=== PATIENT | female | born 1990 | race Caucasian/White ===

== ENCOUNTER 2019-02-02 15:09 | Inpatient (IN) ==
[2019-02-02] MEDS ORDERED: FAMOTIDINE 20 MG/2 ML VIAL IV ONE (15:46)
[2019-02-02] MEDS ORDERED: CITRIC ACID/SODIUM CITRATE 30 ML UDCUP PO ONE (15:46)
[2019-02-02] MEDS ORDERED: ceFAZolin 2,000 MG in PREMIX 1 EACH IV ONE (15:46)
[2019-02-02] MEDS ORDERED: OXYTOCIN/LR 20 UNIT/1,000 ML BAG IV ONE (15:49)
[2019-02-02 16:08] LABS: Basophils % 0.3 % (0.0-0.8); Eosinophils # 0.1 10*3/uL (0.0-0.87); Eosinophils % 0.6 % (0.00-10.9); Hematocrit 37.1 VOL% (35.7-47.0); Hemoglobin 12.9 GM/DL (12.0-16.0); Immature Granulocytes % 1.6 %; Lymphocytes # 1.8 10*3/uL (1.4-4.0); Lymphocytes % 14.7 % (21.3-54.2); Mean Corpuscular HGB Conc 34.8 GM/DL (32-36); Mean Corpuscular Volume 91.6 FL (87-102); Mean Platelet Volume 11.6 FL (9.6-12.0); Monocytes % 7.6 % (1.7-12.7); Neutrophils % 75.2 % (38.7-73.9); Platelet Count 218 T/CUMM (130-400); Red Blood Count 4.05 MC/CUMM (3.8-5.5); Red Cell Distribution Width 12.6 % (9.3-17.3); White Blood Count 12.3 T/CUMM (4-12)
[2019-02-02 16:18] LABS: PT Patient Result 10.5 SECS (9.6-12.2)
[2019-02-02 16:26] LABS: Bilirubin,Total 1.2 MG/DL (0.2-1.0); Uric Acid 5.7 MG/DL (2.6-6.0)
[2019-02-02 16:27] LABS: Albumin 3.1 G/DL (3.4-5.0); Bilirubin,Total 0.5 MG/DL (0.2-1.0); Calcium 9.2 MG/DL (8.5-10.1); Total Protein 7.3 G/DL (6.4-8.3)
[2019-02-02] MEDS: LACTATED RINGERS 1,000 ML IV SCH (17:35)
[2019-02-02] MEDS ORDERED: ZALEPLON 5 MG CAPSULE PO ONE (22:00)
[2019-02-03] MEDS ORDERED: FAMOTIDINE 20 MG/2 ML VIAL IV ONE (06:57)
[2019-02-03] MEDS ORDERED: CITRIC ACID/SODIUM CITRATE 30 ML UDCUP PO ONE (06:57)
[2019-02-03] MEDS ORDERED: ceFAZolin 2,000 MG in PREMIX 1 EACH IV ONE (06:58)
[2019-02-03] MEDS ORDERED: BUPIVACAINE 0.25% 50 ML VIAL ONE (06:59)
[2019-02-03] MEDS ORDERED: PHENYLEPHRINE 1 MG/10 ML SYRINGE IV ONE (06:59)
[2019-02-03] MEDS ORDERED: EPINEPHrine 1 MG/ML VIAL ONE (07:00)
[2019-02-03] MEDS ORDERED: BUPIVACAINE SPINAL 0.75% 2 ML AMP SPINAL ONE (07:00)
[2019-02-03] MEDS ORDERED: DEXAMETHASONE 4 MG/1 ML VIAL ONE (07:00)
[2019-02-03] MEDS ORDERED: MORPHINE 10 MG/10 ML VIAL ONE (07:00)
[2019-02-03] MEDS ORDERED: fentaNYL 100 MCG/2 ML VIAL ONE (07:00)
[2019-02-03] MEDS ORDERED: ONDANSETRON 4 MG/2 ML VIAL ONE ×2 (07:01)
[2019-02-03] MEDS: LACTATED RINGERS 1,000 ML IV SCH (07:09)
[2019-02-03] MEDS ORDERED: METHYLERGONOVINE 0.2 MG/1 ML AMP ONE (07:59)
[2019-02-03] MEDS ORDERED: OXYTOCIN 10 UNIT/ML VIAL ONE (07:59)
[2019-02-03] MEDS ORDERED: METHYLERGONOVINE 0.2 MG/1 ML AMP IM ONE (08:02)
[2019-02-03] MEDS ORDERED: OXYTOCIN 10 UNIT/ML VIAL IM ONE (08:02)
[2019-02-03] MEDS ORDERED: ACETAMINOPHEN 325 MG TABLET PO PRN (08:37)
[2019-02-03] MEDS ORDERED: IBUPROFEN 800 MG TABLET PO PRN (08:37)
[2019-02-03] MEDS ORDERED: RHO(D) IMMUNE GLOBULIN 300 MCG SYRINGE IM ONE (08:37)
[2019-02-03] MEDS ORDERED: SIMETHICONE CHEW 80 MG TABLET PO PRN (08:37)
[2019-02-03] MEDS ORDERED: OXYTOCIN/LR 20 UNIT/1,000 ML BAG IV ONE (08:37)
[2019-02-03] MEDS ORDERED: ONDANSETRON 4 MG/2 ML VIAL IV PRN (08:37)
[2019-02-03] MEDS ORDERED: MAGNESIUM HYDROXIDE SUSP 30 ML UDCUP PO PRN (08:37)
[2019-02-03] MEDS ORDERED: oxyCODONE/ACETAMINOPHEN 5-325 MG TABLET PO PRN (08:39)
[2019-02-03] MEDS ORDERED: ceFAZolin 1,000 MG in SYRINGE 1 EACH IV SCH (09:00)
[2019-02-03] MEDS ORDERED: LACTATED RINGERS 1,000 ML IV SCH (09:00)
[2019-02-03 09:26] LABS: Apearance,Urine CLEAR (Clear); Bilirubin,Urine Negative (Negative); Blood, Urine Negative (Negative); Glucose,Urine (UA) Negative (Negative); Ketones,Urine 5 mg/dL (Negative); Mucus,Urine Occasional /LPF (Occasional); Nitrite,Urine Negative (Negative); Protein,Urine Negative; Squamous Epithelial Cell,Urine Occasional /HPF (0-10); Urine Color Yellow (Yellow); Urine Specific Gravity 1.017 (1.001-1.035); Urine Urobilinogen < 2.0 EU/DL (0.2-1.0); WBC,Urine 1 /HPF (0-6)
[2019-02-03] MEDS ORDERED: HYDROmorphone 2 MG/1 ML VIAL IV ONE (11:01)
[2019-02-03] MEDS ORDERED: ACETAMINOPHEN 500 MG TABLET PO ONE (11:15)
[2019-02-03] MEDS ORDERED: GABAPENTIN 400 MG CAPSULE PO ONE (11:30)
[2019-02-03] MEDS ORDERED: HYDROmorphone 2 MG/1 ML VIAL IV PRN (12:00)
[2019-02-03] MEDS: ceFAZolin 1,000 MG in SYRINGE 1 EACH IV SCH (16:32)
[2019-02-03] MEDS: DOCUSATE SODIUM 100 MG CAPSULE PO SCH (20:56)
[2019-02-04] MEDS: ceFAZolin 1,000 MG in SYRINGE 1 EACH IV SCH (00:11)
[2019-02-04] MEDS ORDERED: KETOROLAC 30 MG/1 ML VIAL IV PRN (00:14)
[2019-02-04 06:10] LABS: Basophils # 0.1 10*3/uL (0.0-0.2); Basophils % 0.4 % (0.0-0.8); Eosinophils # 0.1 10*3/uL (0.0-0.87); Eosinophils % 0.6 % (0.00-10.9); Hematocrit 28.4 VOL% (35.7-47.0); Immature Granulocytes % 1.1 %; Immature Granulocytes Absolute 0.15 #; Lymphocytes # 2.2 10*3/uL (1.4-4.0); Lymphocytes % 16.6 % (21.3-54.2); Mean Corpuscular HGB Conc 34.2 GM/DL (32-36); Mean Corpuscular Volume 92.5 FL (87-102); Mean Platelet Volume 12.1 FL (9.6-12.0); Monocytes % 10.2 % (1.7-12.7); Neutrophils % 71.1 % (38.7-73.9); Platelet Count 175 T/CUMM (130-400); Red Cell Distribution Width 12.8 % (9.3-17.3); White Blood Count 13.4 T/CUMM (4-12)
[2019-02-04 06:12] LABS: Hemoglobin 9.7 GM/DL (12.0-16.0); Red Blood Count 3.07 MC/CUMM (3.8-5.5)
[2019-02-04] MEDS: DOCUSATE SODIUM 100 MG CAPSULE PO SCH ×2 (08:29→20:31)
[2019-02-04] MEDS: MULTIVITAMIN (PRENATAL) TABLET PO SCH (08:29)
[2019-02-04] MEDS: IBUPROFEN 800 MG TABLET PO PRN ×3 (11:52→23:22)
[2019-02-04] MEDS: ACETAMINOPHEN 500 MG TABLET PO PRN (16:54)
[2019-02-05] MEDS: ACETAMINOPHEN 500 MG TABLET PO PRN (04:01)
[2019-02-05 07:26] VITALS: BP 103/63
[2019-02-05] MEDS: MULTIVITAMIN (PRENATAL) TABLET PO SCH (07:45)
[2019-02-05] MEDS: DOCUSATE SODIUM 100 MG CAPSULE PO SCH (07:45)
[2019-02-05] MEDS: IBUPROFEN 800 MG TABLET PO PRN (07:45)
== END 2019-02-05 11:25 | disposition home or self-care (01) | DRG 788 ==
LOC: N.LD 15:09 → N.OB 02-03 11:52
PROVIDERS: ADMIT Obstetrics & Gynecology; ATTEND Obstetrics & Gynecology
PROC: LDCSECT (ICD-10-PCS; 2019-02-03 07:00)